=== PATIENT | male | born 1985 | race Hispanic/Latino ===

== ENCOUNTER 2022-01-24 08:32 | Outpatient (CLI) | payer BC | END 2022-01-24 08:33 | disposition home or self-care (01) | LOC: CSHULT 08:32 | PROVIDERS: ATTEND Family Medicine | DX: R74.8 Abnormal levels of other serum enzymes (principal); K76.0 Fatty (change of) liver, not elsewhere classified | CPT/HCPCS: 76700 ==

== ENCOUNTER 2023-07-01 20:17 | Emergency (ER) | payer BC | END 2023-07-02 00:20 | disposition home or self-care (01) | LOC: CSHERS 20:17 | DX: R42 Dizziness and giddiness (principal); H66.92 Otitis media, unspecified, left ear | CPT/HCPCS: 70450 ==